=== PATIENT | male | born 1975 | race Caucasian/White ===

== ENCOUNTER 2019-12-03 11:54 | Emergency (ER) | payer OTHER ==
--- NOTE | 2019-12-03 13:09 | CR ---
PROCEDURE INFORMATION: Exam: XR Right Humerus Exam date and time: 12/03/2019 12:37 PM Age: 44 years old Clinical indication: Pain; Upper arm; Right; Additional info: Bicep tear TECHNIQUE: Imaging protocol: XR Right humerus Views: 2 or more views. COMPARISON: No relevant prior studies available. FINDINGS: Bones/joints: No acute fracture is identified. No focal lytic or blastic lesion is identified. Acromioclavicular arthrosis is noted. Soft tissues: The soft tissues appear grossly unremarkable. IMPRESSION: 1. No significant radiographic abnormality of the arm identified. 2. Acromioclavicular arthrosis noted.
--- NOTE | 2019-12-03 13:19 | EDM.PDOC ---
ED HPI GENERAL MEDICAL PROBLEM - General Chief Complaint: Upper Extremity Injury/Pain Stated Complaint: [id number] TORE BICEP MUSCLE AT WORK Time Seen by Provider: 12/03/19 12:25 Source of Information: Reports: Patient History Limitations: Reports: No Limitations - History of Present Illness INITIAL COMMENTS - FREE TEXT/NARRATIVE: Patient comes emergency department today from work with complaints of an injury to his right arm. Just prior to arrival the patient was at work when he was trying to get down off a combine he started to fall and grabbed a piece of the combine with his right arm and suddenly had a tearing painful sensation in his right mid bicep region. He has decreased strength to the right arm and he notices a funny bulge in his right bicep. He denies any paresthesias to his hand. He denies any other injury other than to the right bicep. He denies any elbow pain loss of function and he denies any shoulder pain. NO COVID symptoms no COVID exposure. - Related Data Allergies Allergy/AdvReac Type Severity Reaction Status Date / Time No Known Allergies Allergy Verified 12/03/19 12:34 Home Meds: Home Meds LORazepam [Ativan] 12/03/19 [History] Omeprazole 20 mg PO DAILY 12/03/19 [History] Past Medical History Gastrointestinal History: Reports: GERD Psychiatric History: Reports: Anxiety - Past Surgical History GI Surgical History: Reports: Appendectomy Social & Family History - Tobacco Use Smoking Status *Q: Never Smoker Second Hand Smoke Exposure: No - Caffeine Use Caffeine Use: Reports: None - Recreational Drug Use Recreational Drug Use: No Review of Systems - Review of Systems Review Of Systems: Comprehensive ROS is negative, except as noted in HPI. ED EXAM, GENERAL - Physical Exam Exam: See Below Exam Limited By: No Limitations General Appearance: Alert, WD/WN, No Apparent Distress Respiratory/Chest: No Respiratory Distress Cardiovascular: Normal Peripheral Pulses Peripheral Pulses: 2+: Radial (L), Radial (R) Extremities: No: Normal Inspection (Examination of the right upper extremity. The shoulder and elbow are unremarkable. Other than the antecubital fossa space where he has some hypersensitivity as well as some abrasions. These abrasions are rather superficial. Examination of the right humerus does show some deformity of the mid bicep region. I wonder if this is not a partial bicep t endon tear. He is still able to flex and extend the elbow but he is somewhat weaker with the right arm than the left arm. He is able to supinate and pronate appropriately. Elbow shoulders are unremarkable CMS is intact appropriately otherwise.) Course - Vital Signs Last Recorded V/S: Last Vital Signs Temp 97.8 F 12/03/19 12:23 Pulse 65 12/03/19 12:23 Resp 18 12/03/19 12:23 BP 150/98 H 12/03/19 12:23 Pulse Ox 99 12/03/19 12:23 - Radiology Interpretation Free Text/Narrative:: X-ray of the right humerus per radiology shows no significant radiographic abnormality of the arm identified. - Re-Assessments/Exams Free Text/Narrative Re-Assessment/Exam: 12/03/19 17:15 Explained to the patient that this is really the presentation of a partial bicep tendon tear. He still has good function and strength although somewhat weaker than the left. We will put him in a bucket sling. He needs to see his primary care this week and get a MRI to see the extent of the injury to his arm. He is understanding of this questions and questions are answered. Departure - Departure Time of Disposition: 13:17 Disposition: Home, Self-Care 01 Clinical Impression: Biceps tendon tear - Discharge Information Instructions: How to Use Cold Therapy, [id number], How To Use a Sling, [id number], Pain Medicine Instructions, [id number] Referrals: PCP,None [Primary Care Provider] - Forms: ED Department Discharge Additional Instructions: Tylenol and or Ibuprofen as needed for pain. Ice to the area. Arm bucket sling at all times. Okay to take out to shower and bath. See your PCP next available to get an MRI. Physical therapy self referral as well as soon as possible. Return to the ED if new or worsening symptoms. Follow up with PCP next available. Call today to make appointment this week and get an MRI this week as well. Sepsis Event Note (ED) - Evaluation Sepsis Screening Result: No Definite Risk - Focused Exam Vital Signs: Vital Signs Temp Pulse Resp BP Pulse Ox 12/03/19 12:23 97.8 F 65 18 150/98 H 99
== END 2019-12-03 13:33 | disposition home or self-care (01) ==
LOC: DL.ED 11:54
DX: S46.211A Strain of muscle, fascia and tendon of other parts of biceps, right arm, initial encounter (principal); F41.9 Anxiety disorder, unspecified; K21.9 Gastro-esophageal reflux disease without esophagitis; X50.1XXA Overexertion from prolonged static or awkward postures, initial encounter; Y99.0 Civilian activity done for income or pay
CPT/HCPCS: 73060-RT; 99283

== ENCOUNTER 2022-10-01 09:03 | Emergency (ER) | payer SELFPAY | END 2022-10-01 10:06 | disposition home or self-care (01) | LOC: DL.ED 09:03 | DX: J01.90 Acute sinusitis, unspecified (principal); B96.89 Other specified bacterial agents as the cause of diseases classified elsewhere; K21.9 Gastro-esophageal reflux disease without esophagitis; Z79.899 Other long term (current) drug therapy | CPT/HCPCS: 99283; U0002 ==